=== PATIENT | female | born 1980 | race Two or more races ===

== ENCOUNTER 2020-08-03 12:24 | Emergency (ER) | payer OTHER ==
[~2020-08-03] VITALS: Ht 172.7 cm; Wt 86.2 kg
[2020-08-03] MEDS ORDERED: PRENA1 CHEW TA1.4 MG PO (12:37)
[2020-08-03] MEDS ORDERED: PEPCID20 MG PO (19:40)
[2020-08-03] MEDS ORDERED: NAPROXEN500 MG PO (19:40)
== END 2020-08-03 19:43 | disposition home or self-care (01) ==
LOC: ER 12:24
DX: O02.1 Missed abortion (principal)